=== PATIENT | male | born 1995 | race Caucasian/White ===

== ENCOUNTER 2024-05-04 21:43 | Emergency (ER) | payer OTHER ==
[2024-05-04] MEDS: Ketorolac 60 MG/2 ML SDV IM ONE (22:51)
[2024-05-04] MEDS: Diphtheria,Pertussis(Acell),Tetanus Vaccine 0.5 ML Syringe IM ONE (22:52)
[2024-05-04] MEDS: Acetaminophen/HYDROcodone 325-5 MG Tab PO ONE (23:34)
== END 2024-05-04 23:36 | disposition home or self-care (01) ==
LOC: MW.ED 21:43
DX: T23.271A Burn of second degree of right wrist, initial encounter (principal); F17.210 Nicotine dependence, cigarettes, uncomplicated; Z23 Encounter for immunization; Z79.1 Long term (current) use of non-steroidal anti-inflammatories (NSAID); Z75.8 Other problems related to medical facilities and other health care; X19.XXXA Contact with other heat and hot substances, initial encounter
CPT/HCPCS: 90471; 90715; 96372; 99283; A9270; J1885